=== PATIENT | female | born 1960 | race Caucasian/White ===

== ENCOUNTER 2017-05-22 17:59 | Emergency (ER) | payer OTHER | END 2017-05-22 18:50 | disposition home or self-care (01) | LOC: NAV ERS 17:59 | DX: S83.91XA Sprain of unspecified site of right knee, initial encounter (principal); K21.9 Gastro-esophageal reflux disease without esophagitis; I10 Essential (primary) hypertension; Z79.899 Other long term (current) drug therapy; W18.40XA Slipping, tripping and stumbling without falling, unspecified, initial encounter; Y99.0 Civilian activity done for income or pay | CPT/HCPCS: 99283 ==

== ENCOUNTER 2023-11-10 11:12 | Outpatient (CLI) | payer OTHER | END 2023-11-10 11:13 | disposition home or self-care (01) | LOC: NAV RAD 11:12 | PROVIDERS: ATTEND Family Medicine | DX: R05.9 Cough, unspecified (principal); K44.9 Diaphragmatic hernia without obstruction or gangrene | CPT/HCPCS: 71046 ==